=== PATIENT | male | born 1965 | race Caucasian/White ===

== ENCOUNTER 2017-02-17 10:55 | Observation (INO) ==
--- NOTE | 2017-02-17 12:47 | Urology History & Physical ---
Date of Encounter: 02/17/17 Time of Encounter: 12:46 Assessment and Plan (1) Right ureteral stone Current Visit: Yes Status: Acute Patient was brought in for observation for IV pain control. He will be taken to the operative room today for right ureteroscopic stone extraction. History of Present Illness Chief complaint: right flank pain HPI: Mr. Carrasquillo is a 51 year old male with history of right-sided flank pain for the past day. Patient was in the emergency department at outside hospital found to have a 4 x 4 millimeter right ureteral stone. Patient was transferred here secondary to pain control issues. No fevers or nausea or vomiting. Medications and Allergies Allergies No Known Drug Allergies Allergy (Verified 02/17/17 12:16) none Review of Systems - Constitutional no chills - Cardiovascular no chest pain Exam - General physical appearance Present: well developed - Respiratory Present: normal respiratory effort - Cardiovascular Cardiovascular exam IM: RRR - Abdomen Abdomen: Present: soft Urology Results - Labs All other labs normal.
[2017-02-17] MEDS ORDERED: *HR* Midazolam HCl 2 MG/2 ML VIAL ONE (12:58)
[2017-02-17] MEDS ORDERED: Lidocaine -MPF 2% 2 ML VIAL ONE (12:58)
[2017-02-17] MEDS ORDERED: *HR* FentaNYL (PF) 100 MCG/2 ML VIAL ONE (12:58)
[2017-02-17] MEDS ORDERED: 0.9 % Sodium Chloride 1,000 ML IVC SCH ×2 (13:00→16:12)
[2017-02-17] MEDS ORDERED: ceFAZolin 2,000 MG in D5% in Water (Mini-Bag+) 100 ML IVPB ONE (13:44)
--- NOTE | 2017-02-17 13:45 | Anesthesia Evaluation PreOp ---
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 Other Medical History: GERD Anesthesia History: No Prior Anesthetic Complications (tonsillectomy) Alcohol Use: none Medications and Allergies Calcium 500 + Vit D Caplet 1,000 mg PO DAILY 02/17/17 [History] Glucosamine 500 mg PO DAILY 02/17/17 [History] Loratadine 10 mg PO DAILY 02/17/17 [History] Montelukast [Singulair] 10 mg PO DAILY 02/17/17 [History] Omeprazole [PriLOSEC] 40 mg PO DAILY 02/17/17 [History] Vitamin E 400 mg PO DAILY 02/17/17 [History] Allergies No Known Drug Allergies Allergy (Verified 02/17/17 12:16) none - Meds/Allergy Pre-op Review Medications Reviewed: Yes Allergies Reviewed: Yes Beta Blockers on Current Med List: No Anesthesia Exam Last Vital Signs Temp 96.5 F L 02/17/17 13:02 Pulse 62 02/17/17 13:41 Resp 16 02/17/17 13:02 BP 119/75 02/17/17 13:41 Pulse Ox 95 02/17/17 13:41 Weight: 87 kg NPO (# of Hours): >> 8 hrs - HEENT Pupil (Motor): Pupils equal, EOMI Mallampati: III Teeth: Normal Oral Opening: Greater than 3 - PERCUSSION INSTRUCTOR LOC: Oriented PERCUSSION INSTRUCTOR Motor: Normal RUE, Normal LUE, Normal RLE, Normal LLE, Normal Face PERCUSSION INSTRUCTOR Sensory: Normal: RUE, LUE, RLE, LLE, Face - Cardiac Rhythm: Regular Murmur: None - Pulmonary Breath Sounds: bilateral Clear Respiratory Effort: Symmetrical Anesthesia Assess/Plan ASA Score: 2 Modified [place] Scale for Level of Consciousness: Cooperative, oriented, and tranquil Anesthetic Plan: General Monitoring Plan: Standard Monitors Recovery Plan: PACU
[2017-02-17] MEDS ORDERED: *HR* Propofol 200 MG/20 ML VIAL IVP ONE (13:47)
[2017-02-17] MEDS ORDERED: Ondansetron 4 MG/2 ML VIAL ONE (13:58)
[2017-02-17] MEDS ORDERED: Dexamethasone 4 MG/ML VIAL ONE (13:58)
--- NOTE | 2017-02-17 14:24 | Operative Note ---
Date of procedure: 02/17/17 Pre-op diagnosis: right distal ureteral stone Post-op diagnosis: same Procedure: right ureteroscopic laser litho of stone, right ureteroscopic basket retrieval of stone. right 4.8x26cm ureteral stent placement. Anesthesia: GETA Surgeon: Dayne Fan Specimen: right ureteral stone Condition: stable Disposition: PACU Procedure in Detail: Patient was preped and draped in sterile fashion. time out performed. The semirigid ureteroscope was placed into bladder. I could not enter the right UO. I then placed a glide wire into the right kidney . i then dilated the right distal ureter using a 8/10 dilation sheath. I then was able to place the ureterscope into the distal ureter where I encounted the stone. I then used the holmium laser to fragment this stone. Nitinol basket was used to remove the stone fragements. I then placed a 4.8x26cm ureteral stent on the right side using x-ray. bladder drained and procedure ended.
--- NOTE | 2017-02-17 14:27 | Discharge Summary ---
Date of Encounter: 02/17/17 Time of Encounter: 14:24 - Discharge Diagnosis (1) Right ureteral stone Priority: Primary Status: Acute - Discharge Medications Prescriptions: Oxycodone HCl/Acetaminophen [Percocet 5-325 mg Tablet] 2 each PO Q6H PRN #20 tablet PRN Reason: Pain Tamsulosin [Flomax] 0.4 mg PO DAILY #14 cap.er.24h Home Medications: Calcium 500 + Vit D Caplet 1,000 mg PO DAILY 02/17/17 [History] Glucosamine 500 mg PO DAILY 02/17/17 [History] Loratadine 10 mg PO DAILY 02/17/17 [History] Montelukast [Singulair] 10 mg PO DAILY 02/17/17 [History] Omeprazole [PriLOSEC] 40 mg PO DAILY 02/17/17 [History] Oxycodone HCl/Acetaminophen [Percocet 5-325 mg Tablet] 2 each PO Q6H PRN #20 tablet 02/17/17 [Rx] Tamsulosin [Flomax] 0.4 mg PO DAILY #14 cap.er.24h 02/17/17 [Rx] Vitamin E 400 mg PO DAILY 02/17/17 [History] Allergies/Adverse Reactions: Allergies No Known Drug Allergies Allergy (Verified 02/17/17 12:16) none Procedures and tests throughout hospitalization: right ureteroscopic stone extraction with laser and stent placement. Date of admission: 02/17/17 12:09 Primary care physician: PCP [facility] Discharging clinician: Dayne Fan Anticipated date of discharge: 02/17/17 - Patient Status Disposition: Home, Self-Care Condition: Good Overall status at discharge: patient is progressing back to baseline - Discharge Instructions Follow Up With: [place],PCP [Primary Care Provider] - Dayne Fan MD [Partnered Physician] - (3-4 weeks ) Additional Instructions: patient to remove stent on saturday - Diet and Activity Activity: increase activity as tolerated Diet: advance to your usual diet - Hospital Course Hospital course: Mr. Carrasquillo is a 51 year old male brought in for observation for right distal ureteral stone and pain control. Patient taken to the OR and stone removed. stent placeed. patient did well. - Time Spent with Patient Total time spent providing and/or coordinating discharge services: Exam Initial Vital Signs Temp Pulse Resp BP Pulse Ox 96.5 F L 68 16 134/81 95 05/21/17 13:02 02/17/17 13:02 02/17/17 13:02 02/17/17 13:02 02/17/17 13:02 - General physical appearance Present: well developed - Cardiovascular Cardiovascular exam IM: RRR
[2017-02-17] MEDS ORDERED: *HR* HYDROmorphone (PF) 1 MG/ML SYRINGE IVP PRN (14:41)
[2017-02-17] MEDS ORDERED: Ketorolac 30 MG/ML VIAL IVP ONE (14:41)
--- NOTE | 2017-02-17 16:10 | Anesthesia Evaluation Post Op ---
Date of Encounter: 02/17/17 Time of Encounter: 16:00 - Vital Signs Vital Signs: Last Vital Signs Temp 97.4 F L 02/17/17 16:00 Pulse 54 02/17/17 16:00 Resp 16 02/17/17 16:00 BP 118/79 02/17/17 16:00 Pulse Ox 98 02/17/17 16:00 - Lungs Lungs: Clear Ascult./Percussion - Airway Airway: Non-obstructed - Cardiovascular Regular Rate - Mental Status Mental Status: Alert & Oriented, Answers Appropriately - Pain Pain Scale: 2 - Nausea Vomiting Nausea Vomiting: Not Present - Hydration Hydration: Ice chips - Discharge PostOp Status: Transfer Patient to floor
[2017-02-17] MEDS ORDERED: Naloxone 0.4 MG/ML INJ IVP PRN (16:12)
[2017-02-17] MEDS ORDERED: *HR* OxyCODONE/APAP 5/325 TABLET PO PRN (16:12)
[2017-02-17] MEDS ORDERED: *HR* Morphine 2 MG/ML SYRINGE IVP PRN (16:12)
[2017-02-17 17:45] VITALS: BP 119/72
== END 2017-02-17 18:23 | disposition home or self-care (01) ==
LOC: 3ANU
PROVIDERS: ADMIT Urology; ATTEND Urology